=== PATIENT | female | born 1945 | race Caucasian/White ===

== ENCOUNTER 2017-01-26 00:44 | Emergency (ER) | payer MEDICARE ==
[~2017-01-26 00:44] MED LIST: ACETAMINOPHEN PR; ALAVERT10 MG PO; ALBUTEROL17 GM INH; ALPRAZOLAM PO; ANOTHER BP MED; ASPERDRINK81 MG PO; ASPIRIN81 MG PO; BACTRIM DS TABL1 TA1 PO; BACTRIM DS TABL1 TAB PO; BP PILL; CHEWABLE ASPIRI81 MG PO; CIPRO PO; CLARITIN10 M2 PO; CLARITIN10 MG PO; DOXYCYCLINE PO; FLEXERIL PO; GLUCOPHAGE500 MG PO; GLUCOTROL PO; GUAIFEN-P-EPHE480 ML PO; HCTZ PO; IBUPROFEN800 MG PO; K-DUR10 MEQ PO; K-DUR20 ME1 PO; KCL PO; KLOR-CON PO; LASIX20 MG PO; LISINOPRIL20 MG PO; LOPRESSOR PO; LORATADINE; LORTAB 5/500 TA1 TA2 PO; LORTAB ELIXIR15 ML PO; MED FOR DIABETES PO; MEDROL DOSEPAK4 MG DOB; METFORMIN HCL1000 M2; METFORMIN HCL500 M1 PO; METFORMIN PO; METOPROLOL SUCC25 MG PO; METOPROLOL TAR25 MG PO; METOPROLOL TART25 MG PO; PAXIL PO; PAXIL10 MG PO; PHENERGAN W/CO120 ML PO; TESSALON200 MG PO; VIBRAMYCIN100 M1 PO; ZITHROMAX1 G/PKT PO; ZOFRANODT PO
[2017-01-26 01:59] LABS: URINE SOURCE CLEAN CATCH
[2017-01-26 02:00] LABS: BASOPHIL% 0.3 % (0-2.5); EOSINOPHIL# 0.2 X10e3 (0-0.7); EOSINOPHIL% 1.5 % (0.0-7.0); HEMATOCRIT 28.8 % (35.0-45.0); LYMPHOCYTE% 16.5 % (17.0-45.0); MEAN CELL VOLUME 85.1 FL (83-96); MEAN CORPUSCULAR HEMOGLOBIN 26.6 PG (28-34); MEAN CORPUSCULAR HGB CONC 31.2 g/dL (30-36); MEAN PLATELET VOLUME 8.8 FL (6.5-11.5); MONOCYTE# 0.8 X10e3 (0-1.0); MONOCYTE% 6.7 % (3.0-12.0); PLATELET COUNT 235 X10e3 (140-420); RED BLOOD COUNT 3.38 X10e (3.90-5.30); RED CELL DISTRIBUTION WIDTH 16.6 % (11.0-15.5)
[2017-01-26 02:02] LABS: DIFF IND NO
[2017-01-26 02:03] LABS: URINE APPEARANCE CLEAR; URINE BILIRUBIN NEG (NEG); URINE BLOOD NEG (NEG); URINE COLOR YELLOW; URINE GLUCOSE NEG (NEG); URINE KETONE NEG (NEG); URINE LEUKOCYTE ESTERASE TRACE (NEG); URINE NITRATE NEG (NEG); URINE PROTEIN NEG (NEG); URINE SPECIFIC GRAVITY 1.012 (1.003-1.035); URINE UROBILINOGEN 0.2 MG/DL (NEG)
[2017-01-26 02:06] LABS: CULTURE INDICATED? NO; URBCS1 AUWI 0-2 /[HPF] (0-2); URINE BACTERIA AUWI NEG (NEGATIVE); URINE SQUAMOUS EPITHELIAL CELL OCC /[HPF]
[2017-01-26 02:22] LABS: ALBUMIN SERUM 3.6 g/dL (3.5-5.0); BILIRUBIN, DIRECT 0.1 mg/dL (0.0-0.2); BILIRUBIN,INDIRECT 0.4 mg/dL (0.0-0.9); BILIRUBIN,TOTAL 0.5 mg/dL (0.2-2.0); BUN/CREATININE RATIO 17.69; CALCIUM SERUM 8.9 mg/dL (8.4-10.2); CREATININE SERUM 1.3 mg/dL (0.6-1.4); GLOM FILT RATE Estimated 41.8 mL/min (>60); POTASSIUM 3.9 mmol/L (3.5-5.1)
== END 2017-01-26 02:55 | disposition home or self-care (01) ==
LOC: CED 00:44
DX: R10.84 Generalized abdominal pain (principal); E11.9 Type 2 diabetes mellitus without complications; I10 Essential (primary) hypertension; Z90.49 Acquired absence of other specified parts of digestive tract; Z98.51 Tubal ligation status; Z88.1 Allergy status to other antibiotic agents; Z79.82 Long term (current) use of aspirin; Z79.899 Other long term (current) drug therapy
CPT/HCPCS: 36415; 80048; 80076; 81003; 83690; 85025; 99284; C9113; J1885; J2405